=== PATIENT | male | born 1975 | race Caucasian/White ===

== ENCOUNTER 2017-03-08 07:35 | Emergency (ER) | payer OTHER ==
[~2017-03-08] VITALS: Ht 182.9 cm; Wt 95.3 kg
[2017-03-08 07:41] VITALS: BP 144/100
[2017-03-08] MEDS ORDERED: LIPITOR10 MG PO (07:45)
[2017-03-08] MEDS ORDERED: TRIAMCINOLONE A80 G2 TOP (07:51)
[2017-03-08] MEDS ORDERED: PREDNISONE 10 M10 MG PO (07:51)
== END 2017-03-08 07:59 | disposition home or self-care (01) ==
LOC: M.ERS 07:35
DX: L25.9 Unspecified contact dermatitis, unspecified cause (principal); F10.99 Alcohol use, unspecified with unspecified alcohol-induced disorder